=== PATIENT | female | born 2000 | race Two or more races ===

== ENCOUNTER 2024-01-14 08:19 | Outpatient (CLI) | payer OTHER ==
[2024-01-14 09:46] LABS: HEMATOCRIT 38.7 % (36.0-45.00); HEMOGLOBIN 13.4 g/dL (12.0-15.00); MEAN CELL VOLUME 87.8 fL (80.00-100.00); MEAN CORPUSCULAR HEMOGLOBIN 30.5 pg (27.00-32.0); MEAN CORPUSCULAR HGB CONC 34.7 g/dl (32.0-36.0); PLATELET COUNT 298 K/uL (150-450); RED BLOOD COUNT 4.41 M/uL (4.00-6.00); RED CELL DISTRIBUTION WIDTH 13.1 % (11.5-14.5)
[2024-01-14 10:31] LABS: PH,URINE 7.5 (5.0-8.0); URINE APPEARANCE Clear; URINE BILIRRUBIN Negative (NEGATIVE); URINE BLOOD Negative; URINE COLOR Yellow; URINE GLUCOSE Negative (NEGATIVE); URINE KETONE Negative (NEGATIVE); URINE LEUKOCYTE Negative; URINE NITRATE Negative; URINE PROTEIN Negative (NEGATIVE); URINE UROBILINOGEN 0.2 E.U./dl
[2024-01-14 10:35] LABS: URINE BACTERIA 299.8 uL (0.0-1933); URINE EPITHELIAL CELLS 18.8 uL (0.0-38.8); URINE WBC 10.6 uL (0.0-23.2)
[2024-01-14 10:38] LABS: ALBUMIN 4.4 gm/dL (3.4-5.0); BILIRUBIN TOTAL 0.79 mg/dL (0.3-1.2); CALCIUM 9.4 mg/dL (8.5-10.1); CHOL HDL RATIO 3.3 (0-5.0); CREATININE SERUM 0.63 mg/dL (0.55-1.02); GFR 119.29; GLOBULINA 3.4 G/DL (2.4-3.5); POTASSIUM 3.86 mEq/L (3.5-5.1); TOTAL PROTEIN 7.8 gm/dL (6.4-8.2)
[2024-01-14 10:40] LABS: TSH 2.05 uIU/mL (0.358-3.74)
[2024-01-14 10:41] LABS: URINE RBC 0.3 uL (0.0-20.8)
[2024-01-16 12:06] LABS: FOLLICLE STIMULATING HORMONE 5.6 mIU/mL (.); PROLACTIN 15.6 ng/mL (4.8-33.4)
== END 2024-01-14 08:25 | disposition home or self-care (01) ==
LOC: LAB 08:19
PROVIDERS: ATTEND Student in an Organized Health Care Education/Training Program
DX: D64.9 Anemia, unspecified (principal); Z12.11 Encounter for screening for malignant neoplasm of colon; E03.8 Other specified hypothyroidism; N95.1 Menopausal and female climacteric states; I10 Essential (primary) hypertension; C51.9 Malignant neoplasm of vulva, unspecified; N30.00 Acute cystitis without hematuria; E83.51 Hypocalcemia; A64 Unspecified sexually transmitted disease; N39.0 Urinary tract infection, site not specified; R97.8 Other abnormal tumor markers; R79.89 Other specified abnormal findings of blood chemistry; E55.9 Vitamin D deficiency, unspecified; A60.9 Anogenital herpesviral infection, unspecified; R10.9 Unspecified abdominal pain; R19.5 Other fecal abnormalities; K92.1 Melena; R11.0 Nausea; R74.01 Elevation of levels of liver transaminase levels; E88.9 Metabolic disorder, unspecified

== ENCOUNTER 2024-01-14 13:32 | Outpatient (CLI) | payer OTHER | END 2024-01-14 13:40 | disposition home or self-care (01) | LOC: SONOGRAMA | PROVIDERS: ATTEND Student in an Organized Health Care Education/Training Program | DX: N93.8 Other specified abnormal uterine and vaginal bleeding (principal) ==